=== PATIENT | female | born 1960 | race Caucasian/White ===

== ENCOUNTER 2019-11-06 12:35 | Emergency (ER) | payer BC ==
[~2019-11-06] VITALS: Ht 167.6 cm; Wt 111.1 kg
[~2019-11-06 12:35] MED LIST: METFORMIN HCL1000 M1 ORAL
--- NOTE | 2019-11-06 12:39 | NUR ---
ED Nurse Note: Pt brought in by ambulance d/t mechanical fall on stairs of a parking garage. Pt has 1/2 inch lac on her lower lip and 2 inch lac on her right forehead. Pt denies loss of consciousness/nausea/vomiting/blurred vision. Respiraitons even and unlabored on room air. Vitals stable as documented.
[2019-11-06] MEDS ORDERED: Lidocaine 1% 10mg/ml/EPI 0.01mg/ml 30ml INJ ONE (12:45)
[2019-11-06 13:00] VITALS: BP 129/66
[2019-11-06] MEDS ORDERED: ceFAZolin 1gm/50ml Premix 50 ML IV ONE (13:00)
--- NOTE | 2019-11-06 13:01 | NUR ---
ED Nurse Note: blood sent to lab
--- NOTE | 2019-11-06 13:03 | NUR ---
ED Nurse Note: Radiology called regarding CT
[2019-11-06 13:20] LABS: BASOPHILS % (AUTO) 0.7 % (0.0-2.0); EOSINOPHILS % (AUTO) 1.3 % (0.0-3.0); HEMATOCRIT 43.8 % (37.0-47.0); HEMOGLOBIN 14.8 G/DL (12.0-16.0); LYMPHOCYTES % (AUTO) 29.2 % (20.0-45.0); MEAN CORPUSCULAR VOLUME 90 FL (80-99); MONOCYTES % (AUTO) 6.2 % (1.0-10.0); NEUTROPHILS % (AUTO) 62.6 % (45.0-75.0); PLATELET COUNT 231 K/UL (150-450); RED BLOOD COUNT 4.87 M/UL (4.20-5.40); RED CELL DISTRIBUTION WIDTH 12.9 % (11.6-14.8); WHITE BLOOD COUNT 8.1 K/UL (4.8-10.8)
--- NOTE | 2019-11-06 13:20 | NUR ---
ED Nurse Note: Pt back from CT
--- NOTE | 2019-11-06 13:24 | Emergency Room Report ---
History of Present Illness General Chief Complaint: Multiple Trauma/Fall Source: Patient Present Illness HPI Patient is a 59-year-old female presents after fall downstairs. Patient reports having no loss of consciousness. She states she tripped prior to falling. Reports having recent tetanus vaccine. Denies feeling dizzy or lightheaded.Denies any neck pain at this time. Has a small injury to her lip. Denies malocclusion.Patient does not take any blood thinners. Prior history of type 2 diabetes. Allergies: Coded Allergies: No Known Allergies (Unverified , 11/06/19) Patient History Past Medical History: see triage record Reviewed Nursing Documentation: PMH: Agreed; PSxH: Agreed Nursing Documentation-PMH Past Medical History: No History, Except For Hx Diabetes: Yes Review of Systems All Other Systems: negative except mentioned in HPI Physical Exam Vital Signs Date Time Temp Pulse Resp B/P (MAP) Pulse Ox O2 Delivery O2 Flow Rate FiO2 11/06/19 12:30 98.6 109 19 159/79 (105) 98 Room Air Sp02 EP Interpretation: reviewed, normal General Appearance: normal inspection, well appearing, no apparent distress, alert, GCS 15 Head: atraumatic ENT: normal ENT inspection, hearing grossly normal, normal voice Neck: normal inspection, full range of motion, supple, no bony tend Respiratory: normal inspection, lungs clear, normal breath sounds, no respiratory distress, no retraction, no wheezing Cardiovascular #1: regular rate, rhythm, no edema Gastrointestinal: normal inspection, normal bowel sounds, non tender, soft, no guarding, no hernia Genitourinary: no CVA tenderness Musculoskeletal: normal inspection, back normal, normal range of motion Neurologic: alert, motor strength/tone normal, automation technologist III-XII nml as tested, oriented x3, responsive, speech normal, normal inspection Psychiatric: normal inspection, judgement/insight normal, mood/affect normal Skin: laceration - complex laceration to right side of head Medical Decision Making Diagnostic Impression: Primary Impression: Fall Additional Impression: Complex laceration of face ER Course Patient presented after a fall downstairs.Differential diagnosis include was not limited to head injury, fracture, cervical spine injury among others. Patient's CT imaging showed no evidence of acute fracture or intracranial hemorrhage. Because of complex laceration of the face plastic surgeon was contacted for repair. Patient will likely be discharged home after repair is completed. Dr. Justin Kimball presented and repaired the laceration. Patient will be discharged home. Patient was to follow-up with Dr. Kimball for recheck. Labs Test 11/06/19 12:55 White Blood Count 8.1 K/UL (4.8-10.8) Red Blood Count 4.87 M/UL (4.20-5.40) Hemoglobin 14.8 G/DL (12.0-16.0) Hematocrit 43.8 % (37.0-47.0) Mean Corpuscular Volume 90 FL (80-99) Mean Corpuscular Hemoglobin 30.4 PG (27.0-31.0) Mean Corpuscular Hemoglobin Concent 33.7 G/DL (32.0-36.0) Red Cell Distribution Width 12.9 % (11.6-14.8) Platelet Count 231 K/UL (150-450) Mean Platelet Volume 7.7 FL (6.5-10.1) Neutrophils (%) (Auto) 62.6 % (45.0-75.0) Lymphocytes (%) (Auto) 29.2 % (20.0-45.0) Monocytes (%) (Auto) 6.2 % (1.0-10.0) Eosinophils (%) (Auto) 1.3 % (0.0-3.0) Basophils (%) (Auto) 0.7 % (0.0-2.0) Prothrombin Time 10.0 SEC (9.30-11.50) Prothromb Time International Ratio 0.9 (0.9-1.1) Activated Partial Thromboplast Time 30 SEC (23-33) Sodium Level 143 MMOL/L (136-145) Potassium Level 3.9 MMOL/L (3.5-5.1) Chloride Level 104 MMOL/L (98-107) Carbon Dioxide Level 30 MMOL/L (21-32) Anion Gap 9 mmol/L (5-15) Blood Urea Nitrogen 13 mg/dL (7-18) Creatinine 0.7 MG/DL (0.55-1.30) Estimat Glomerular Filtration Rate > 60 mL/min (>60) Glucose Level 89 MG/DL (74-106) Calcium Level 9.2 MG/DL (8.5-10.1) Total Bilirubin 0.5 MG/DL (0.2-1.0) Aspartate Amino Transf (AST/SGOT) 27 U/L (15-37) Alanine Aminotransferase (ALT/SGPT) 36 U/L (12-78) Alkaline Phosphatase 99 U/L (46-116) Total Protein 7.7 G/DL (6.4-8.2) Albumin 3.7 G/DL (3.4-5.0) Globulin 4.0 g/dL Albumin/Globulin Ratio 0.9 (1.0-2.7) Last Vital Signs Date Time Temp Pulse Resp B/P (MAP) Pulse Ox O2 Delivery O2 Flow Rate FiO2 11/06/19 13:00 82 19 129/66 98 Room Air 11/06/19 12:30 98.6 Status: improved Disposition: HOME, SELF-CARE Condition: Stable Scripts Acetaminophen* (ACETAMINOPHEN EXTRA STRENGTH*) 500 Mg Tablet 500 MG ORAL Q8H PRN for Fever/Headache/Mild Pain, #30 TAB Prov: Raheel Machado MD 11/06/19 Cephalexin* (KEFLEX*) 500 Mg Capsule 500 MG ORAL EVERY 6 HOURS, #28 CAP Prov: Raheel Machado MD 11/06/19 Raheel Machado MD Nov 06, 2019 13:24
[2019-11-06 13:26] LABS: INR 0.9 (0.9-1.1)
[2019-11-06 13:37] LABS: ANION GAP 9 mmol/L (5-15); BLOOD UREA NITROGEN 13 mg/dL (7-18); CALCIUM 9.2 MG/DL (8.5-10.1); CARBON DIOXIDE 30 MMOL/L (21-32); CHLORIDE 104 MMOL/L (98-107); CREATININE 0.7 MG/DL (0.55-1.30); POTASSIUM 3.9 MMOL/L (3.5-5.1); SODIUM 143 MMOL/L (136-145)
[2019-11-06 13:43] LABS: ALANINE AMINOTRANSFERASE 36 U/L (12-78); ALBUMIN 3.7 G/DL (3.4-5.0); ALBUMIN/GLOBULIN RATIO 0.9 (1.0-2.7); ALKALINE PHOSPHATASE 99 U/L (46-116); ASPARTATE AMINO TRANSFERASE 27 U/L (15-37); BILIRUBIN,TOTAL 0.5 MG/DL (0.2-1.0)
--- NOTE | 2019-11-06 14:11 | NUR ---
ED Nurse Note: Blood saturated dressing. Wound redressed with wet dressing and kerlix.
--- NOTE | 2019-11-06 14:12 | NUR ---
ED Nurse Note: Pt awaiting to be assessed by plastic surgeon. Pt aware.
[2019-11-06] MEDS ORDERED: Bacitracin Oint UD TOPIC ONE ×2 (14:37→14:45)
[2019-11-06] MEDS ORDERED: CEPHALEXIN500 MG ORAL (14:39)
[2019-11-06] MEDS ORDERED: ACETAMINOPHEN500 M3 ORAL (14:39)
[2019-11-06 15:30] VITALS: BP 124/69
--- NOTE | 2019-11-07 09:35 | Diagnostic Imaging Report ---
Indication: Headache Technique: Contiguous 5 mm thick transaxial imaging of the head obtained in a Siemens Sensation [address] scanner. Soft tissue and bone windows generated. Automatic Exposure Control was utilized. Total Dose length Product (DLP): 1551.[address] Dose Index Volume (CTDIvol): 62.7 mGy Comparison: none Findings: There is mild prominence of the ventricles which is likely a sign of a mild atrophy with a central predominance. The basal cisterns and cerebral sulci appear relatively normal. There is no midline shift, edema, acute hemorrhage, mass effect, or abnormal extra-axial fluid collections. Bones are unremarkable. Impression: No acute intracranial bleed, mass effect or edema. Mild atrophy of the brain. The CT scanner at [facility] is accredited by the [employer] and the scans are performed using dose optimization techniques as appropriate to a performed exam including Automatic Exposure control.
--- NOTE | 2019-11-07 09:35 | Diagnostic Imaging Report ---
Indication: Orbital and maxillofacial trauma and pain Technique: Continuous helical transaxial imaging of the orbits/maxillofacial structures obtained without intravenous contrast administration. Coronal 2-D reformats were also obtained. Study obtained in a Siemens sensation [address] Automatic Exposure Control was utilized. Total Dose length Product (DLP): 549.[address] Dose Index Volume (CTDIvol): A 4 mGy Comparison: None Findings: There is no evidence of an acute fracture. Paranasal sinuses and mastoids are clear. There is a area of soft tissue swelling and laceration in the right supraorbital region. Degenerative changes of the cervical spine are noted characterized by hypertrophy of the uncovertebral and facet joints with narrowing of some of the intervertebral discs as visualized. There is moderate asymmetric right facet arthropathy at the C3-4. IMPRESSION: No acute fracture identified. Soft tissue contusion/laceration right supraorbital region. Degenerative changes of the cervical spine. The CT scanner at [facility] is accredited by the [employer] and the scans are performed using dose optimization techniques as appropriate to a performed exam including Automatic Exposure control.
== END 2019-11-06 15:35 | disposition home or self-care (01) ==
LOC: EDBD 12:35 → EMR 14:00
DX: S01.111A Laceration without foreign body of right eyelid and periocular area, initial encounter (principal); S01.511A Laceration without foreign body of lip, initial encounter; E11.9 Type 2 diabetes mellitus without complications; W01.0XXA Fall on same level from slipping, tripping and stumbling without subsequent striking against object, initial encounter; Y92.89 Other specified places as the place of occurrence of the external cause
CPT/HCPCS: 12051; 36415; 70450; 70486; 80053; 85025; 85610; 85730; 96365; 99284; J0690